=== PATIENT | female | born 1950 | race Caucasian/White ===

== ENCOUNTER 2023-10-02 18:34 | Emergency (ER) | payer MEDICARE, BC, OTHER ==
[2023-10-02 18:53] LABS: BASOPHILS PERCENT AUTO 0.2 % (0.2-1.2); EOSINOPHILS ABSOLUTE AUTO 0.2 x10^3/uL (0.0-0.5); EOSINOPHILS PERCENT AUTO 2.6 % (0.0-4.0); HEMATOCRIT 35.1 % (33.0-47.0); IMMATURE GRAN ABSOLUTE AUTO 0.01 x10^3/uL (0.00-0.07); LYMPHOCYTES ABSOLUTE AUTO 2.2 x10^3/uL (1.0-4.8); LYMPHOCYTES PERCENT AUTO 38.4 % (25.0-50.0); MEAN CORPUSCULAR HEMOGLOBIN 30.5 pg (26.0-32.0); MEAN CORPUSCULAR HGB CONC 34.2 g/dL (32.0-36.0); MEAN CORPUSCULAR VOLUME 89.1 fL (78.0-93.0); MONOCYTES ABSOLUTE AUTO 0.5 x10^3/uL (0.0-0.8); MONOCYTES PERCENT AUTO 8.4 % (2.0-11.0); NEUTROPHILS ABSOLUTE AUTO 2.9 x10^3/uL (1.8-7.7); NEUTROPHILS PERCENT AUTO 50.2 % (50.0-80.0); PLATELET COUNT,PLT 272 x10^3/uL (130-400); RED BLOOD CELL COUNT 3.94 x10^6/uL (4.00-5.50); WHITE BLOOD CELL COUNT,WBC 5.8 x10^3/uL (4.0-10.0)
[2023-10-02 19:10] LABS: A/G RATIO 1.59; ALBUMIN 4.3 g/dL (3.4-5.0); BILIRUBIN TOTAL 0.4 mg/dL (0.2-1.0); CALCIUM 9.2 mg/dL (8.5-10.1); CREATININE 1.1 mg/dL (0.55-1.02); EST CRCL DRUG DOSING (CG) 32.72 mL/min
[2023-10-02] MEDS ORDERED: Dexamethasone 4 MG/ML SDV IM ONE (20:10)
[2023-10-02] MEDS: Dexamethasone 4 MG/ML SDV IVPUSH ONE (20:40)
== END 2023-10-02 20:24 | disposition home or self-care (01) ==
LOC: MERGE 18:34 → VM.ED 18:34
DX: M94.0 Chondrocostal junction syndrome [Tietze] (principal); Z88.0 Allergy status to penicillin
CPT/HCPCS: 80053; 83735; 84484; 85025; 93005; 96374; 99285; J1100; 93010; 99284